=== PATIENT | male | born 1990 | race Caucasian/White ===

== ENCOUNTER 2016-10-04 11:18 | Emergency (ER) | payer MEDICAID ==
[~2016-10-04] VITALS: Ht 177.8 cm; Wt 79.4 kg
--- NOTE | 2016-10-04 13:04 | NUR ---
PT TO BED 3 AT THIS TIME.
--- NOTE | 2016-10-04 13:30 | NUR ---
PATIENT PRESENTS TO ED WITH med refill request . PT STATES only needs refill . DENIES N/V/D; SKIN IS PINK/WARM/DRY; AAOX4 WITH EVEN AND STEADY GAIT; LUNGS CLEAR BL; HR EVEN AND REGULAR; PT DENIES ANY FEVER, CP, SOB, OR COUGH AT THIS TIME; PATIENT STATES PAIN OF 0/10 AT THIS TIME; VSS; PATIENT POSITIONED FOR COMFORT; HOB ELEVATED; BEDRAILS UP X2; BED DOWN. ER MD MADE AWARE OF PT STATUS. noted red lump over right lower leg---does not want to address that today.
--- NOTE | 2016-10-04 13:30 | NUR ---
Patient being evaluated by physician at bedside.
--- NOTE | 2016-10-04 13:40 | NUR ---
Patient being evaluated by physician at bedside.
[2016-10-04 14:11] VITALS: BP 129/67
--- NOTE | 2016-10-04 14:12 | NUR ---
Patient discharged with v/s stable. Written and verbal after care instructions given and explained. Patient alert, oriented and verbalized understanding of instructions. Ambulatory with steady gait. All questions addressed prior to discharge. ID band removed. Patient advised to follow up with PMD. Rx of augmentin/trazodone/clonazepam/depakote given. Patient educated on indication of medication including possible reaction and side effects. Opportunity to ask questions provided and answered.
== END 2016-10-04 14:12 | disposition home or self-care (01) ==
LOC: MED 11:18
DX: Z76.0 Encounter for issue of repeat prescription (principal); L03.115 Cellulitis of right lower limb; F17.200 Nicotine dependence, unspecified, uncomplicated; Z71.6 Tobacco abuse counseling

== ENCOUNTER 2016-11-08 11:33 | Emergency (ER) | payer MEDICAID ==
[~2016-11-08] VITALS: Ht 177.8 cm; Wt 79.4 kg
--- NOTE | 2016-11-08 11:34 | NUR ---
Patient BIB [facility] as pre-book, transferred to bed 6. RN evaluating patient at bedside.
[2016-11-08 11:36] VITALS: BP 99/61
--- NOTE | 2016-11-08 11:41 | NUR ---
PATIENT BIB [facility] FOR PRE-BOOK CLEARANCE . PT STATES HE HAS HX OF HEP C AND SEIZURES. PT C/O RIGHT CALF PAIN, DENIES ANY RECENT INJURY OR TRAUMA . DENIES N/V/D; SKIN IS PINK/WARM/DRY; AAOX4 WITH EVEN AND STEADY GAIT; LUNGS CLEAR BL; HR EVEN AND REGULAR; PT DENIES ANY FEVER, CP, SOB, OR COUGH AT THIS TIME; PATIENT STATES PAIN OF 10/10 AT THIS TIME; VSS; PATIENT POSITIONED FOR COMFORT; HOB ELEVATED; BEDRAILS UP X2; BED DOWN. ER MD MADE AWARE OF PT STATUS. [facility] AT BEDSIDE.
[2016-11-08 12:05] VITALS: BP 109/59
--- NOTE | 2016-11-08 12:05 | NUR ---
PATIENT BIB OFFICER [facility] # [id number] FROM [employer]. PATIENT EXAMINED BY . PATIENT MEDICALLY CLEARED AND RELEASED IN CUSTODY IN STABLE CONDITION. ORIGINAL PRE-BOOK FORM GIVEN TO OFF[facility]ER [facility] # [id number].
== END 2016-11-08 12:05 ==
LOC: MED 11:33
DX: Z02.89 Encounter for other administrative examinations (principal); L02.415 Cutaneous abscess of right lower limb; Z86.19 Personal history of other infectious and parasitic diseases
CPT/HCPCS: 99283

== ENCOUNTER 2017-01-06 15:59 | Emergency (ER) | payer MEDICAID ==
[~2017-01-06] VITALS: Ht 177.8 cm; Wt 81.6 kg
[2017-01-06 16:17] VITALS: BP 127/75
--- NOTE | 2017-01-06 17:00 | NUR ---
PATIENT PRESENTS TO ED WITH MEDICATION RERFILL . PT STATES DOCTOR IS OUT FOR THE WEEK . DENIES N/V/D; SKIN IS PINK/WARM/DRY; AAOX4 WITH EVEN AND STEADY GAIT; LUNGS CLEAR BL; HR EVEN AND REGULAR; PT DENIES ANY FEVER, CP, SOB, OR COUGH AT THIS TIME; PATIENT STATES PAIN OF 0/10 AT THIS TIME; VSS; PATIENT POSITIONED FOR COMFORT; HOB ELEVATED; BEDRAILS UP X2; BED DOWN. ER MD MADE AWARE OF PT STATUS.
--- NOTE | 2017-01-06 17:32 | NUR ---
PT LEFT BEFORE DC PAPERS COULD BE HANDED TO PT
--- NOTE | 2017-01-06 17:34 | NUR ---
PATIENT ELOPED FROM FACILITY. DISCHARGE INSTRUCTIONS NOT GIVEN TO PATIENT. DR. DELVALLE NOTIFIED.
== END 2017-01-06 17:34 | disposition left against medical advice (07) ==
LOC: MED 15:59
DX: Z76.0 Encounter for issue of repeat prescription (principal); G40.909 Epilepsy, unspecified, not intractable, without status epilepticus; F32.1 Major depressive disorder, single episode, moderate; F41.9 Anxiety disorder, unspecified; Z88.2 Allergy status to sulfonamides; Z88.1 Allergy status to other antibiotic agents

== ENCOUNTER 2017-04-02 03:21 | Emergency (ER) | payer MEDICAID ==
[~2017-04-02] VITALS: Ht 177.8 cm; Wt 80.3 kg
[2017-04-02 03:28] VITALS: BP 129/68
--- NOTE | 2017-04-02 03:36 | NUR ---
TO ER BED 3
--- NOTE | 2017-04-02 03:47 | NUR ---
27Y/M PT. PRESENTS TO ED WITH POSSIBLE SEIZURE. PT. STATES HIS GIRLFRIEND TOLD HIM THAT HE MIGH HAD SEIZURE WHILE SLEEPING FOR 30 SECS. HX. DEPRESSION, ANXIETY, ON DEPAKOTE, TRAZODONE, CLONOPIN, RUN OUT OF MEDICATION X 1 WK. AAO X4, GCS 15, AMBULATORY WITH STEADY GAIT. RESPIRATIONS ROOM AIR, EVEN AND UNLBAORED. NO C/O PAIN AT THIS TIME. VSS, NO S/SX OF DISTRESS. ER MD MADE AWARE OF PT. STATUS.
--- NOTE | 2017-04-02 04:15 | NUR ---
Patient being evaluated by physician at bedside.
--- NOTE | 2017-04-02 04:30 | NUR ---
Patient discharged with v/s stable. Written and verbal after care instructions given and explained. Patient alert, oriented and verbalized understanding of instructions. Ambulatory with steady gait. All questions addressed prior to discharge. ID band removed. Patient advised to follow up with PMD. Rx of DEPAKOTE 250 MG, TRAZODONE 50 MG given. Patient educated on indication of medication including possible reaction and side effects. Opportunity to ask questions provided and answered.
[2017-04-02 04:44] VITALS: BP 110/60
== END 2017-04-02 04:30 | disposition home or self-care (01) ==
LOC: MED 03:21
DX: R56.9 Unspecified convulsions (principal); Z76.0 Encounter for issue of repeat prescription; Z88.2 Allergy status to sulfonamides; Z88.1 Allergy status to other antibiotic agents; F32.9 Major depressive disorder, single episode, unspecified; F41.9 Anxiety disorder, unspecified
CPT/HCPCS: 99283